=== PATIENT | female | born 1930 | race Caucasian/White ===

== ENCOUNTER 2017-04-16 09:39 | Emergency (ER) | payer MEDICARE, OTHER ==
[2017-04-16] MEDS ORDERED: Albuterol/Ipratropium 3.0-0.5 MG/3 ML Neb Soln NEB ONE (09:59)
--- NOTE | 2017-04-16 10:24 | EDM.PDOC ---
ED HPI GENERAL MEDICAL PROBLEM - General Chief Complaint: Respiratory Problem Stated Complaint: BREATHING PROBLEMS Time Seen by Provider: 04/16/17 09:45 Source of Information: Reports: Patient, Family History Limitations: Reports: No Limitations - History of Present Illness INITIAL COMMENTS - FREE TEXT/NARRATIVE: Patient states that she woke up some time in the middle of the night and was short of breath. The SOB has continued without change through this AM which caused her to seek medical attention today. Onset: Unknown/Unsure Onset Date: 04/16/17 Onset Time: 02:00 ("Sometime in the middle of the night.") Duration: Hour(s): (8), Other (No change) Location: Reports: Chest Quality: Reports: Other (Pt denies pain) Severity: Mild Improves with: Reports: Rest Worsens with: Reports: Movement Context: Reports: Activity Associated Symptoms: Reports: Shortness of Breath, Other (dizziness) - Related Data Allergies Allergy/AdvReac Type Severity Reaction Status Date / Time losartan potassium Allergy Nausea Verified 04/16/17 09:59 [From Alex] Home Meds: Home Meds Budesonide/Formoterol [Symbicort 160-4.5 MCG] 2 puff INH BID 04/23/14 [History] Simvastatin [Simvastatin] 10 mg PO DAILY 04/23/14 [History] Albuterol Sulfate [Albuterol Sulfate HFA] 2 puff INH Q6HR PRN 05/13/15 [History] Aspirin 81 mg PO DAILY 05/13/15 [History] Cetirizine [ZyrTEC] 10 mg PO DAILY 05/13/15 [History] Fluticasone Propionate [Flonase] 50 mcg NASBOTH DAILY PRN 05/13/15 [History] Furosemide 20 mg PO DAILY 05/13/15 [History] Memantine HCl [Namenda Xr] 14 mg PO DAILY 05/13/15 [History] Multivitamin [Multivitamins] 1 each PO DAILY 05/13/15 [History] amLODIPine [Norvasc] 5 mg PO DAILY 05/13/15 [History] Ibuprofen 200 - 600 mg PO Q4H PRN 10/10/15 [History] Past Medical History HEENT History: Reports: Cataract, Retinal Detachment Other HEENT History: pseudophakia. myopia presbyopia. dermatochalasis. dry eye. chronic rhinitis astigmatism Cardiovascular History: Reports: High Cholesterol, Hypertension Respiratory History: Reports: Asthma, COPD Gastrointestinal History: Reports: Colon Polyp, Other (See Below) Other Gastrointestinal History: acid reflux Musculoskeletal History: Reports: Gout, Other (See Below) Other Musculoskeletal History: osteopenia Neurological History: Reports: Other (See Below) Other Neuro History: memory issues Psychiatric History: Reports: Other (See Below) Other Psychiatric History: mild cognitive disorder - Past Surgical History HEENT Surgical History: Reports: Detached Retina Social & Family History - Tobacco Use Smoking Status *Q: Never Smoker - Alcohol Use Days Per Week of Alcohol Use: 0 - Recreational Drug Use Recreational Drug Use: No Drug Use in Last 12 Months: No ED ROS GENERAL - Review of Systems Review Of Systems: See Below Constitutional: Reports: Fatigue HEENT: Reports: No Symptoms Respiratory: Reports: Shortness of Breath Cardiovascular: Reports: No Symptoms Endocrine: Reports: No Symptoms GI/Abdominal: Reports: No Symptoms : Reports: No Symptoms Musculoskeletal: Reports: Neck Pain, Back Pain Skin: Reports: No Symptoms Neurological: Reports: Dizziness Psychiatric: Reports: No Symptoms Hematologic/Lymphatic: Reports: No Symptoms Immunologic: Reports: No Symptoms ED EXAM, GENERAL - Physical Exam Exam: See Below Exam Limited By: No Limitations General Appearance: Alert, No Apparent Distress Eye Exam: Bilateral Eye: Normal Inspection, PERRL Ears: Normal External Exam, Normal Canal, Hearing Grossly Normal, Normal TMs Ear Exam: Bilateral Ear: Auricle Normal, Canal Normal, TM normal Nose: Normal Inspection, Normal Mucosa, No Blood Throat/Mouth: Normal Inspection, Normal Lips, Normal Teeth, Normal Gums, Normal Oropharynx, Normal Voice, No Airway Compromise Head: Atraumatic, Normocephalic Neck: Normal Inspection, Supple, Non-Tender, Full Range of Motion Respiratory/Chest: No Respiratory Distress, Lungs Clear, Normal Breath Sounds, No Accessory Muscle Use, Chest Non-Tender Cardiovascular: Normal Peripheral Pulses, No Edema, Bradycardia, Systolic Murmur Peripheral Pulses: 2+: Carotid (L), Carotid (R), Radial (L), Radial (R), Dorsalis Pedis (L), Dorsalis Pedis (R) GI/Abdominal: Normal Bowel Sounds, Soft, Non-Tender, No Organomegaly, No Distention (Female) Exam: Deferred Rectal (Female) Exam: Deferred Back Exam: Decreased Range of Motion Extremities: Normal Inspection, No Pedal Edema, Normal Capillary Refill Neurological: Alert, Oriented, CN II-XII Intact Psychiatric: Normal Affect, Normal Mood Skin Exam: Warm, Dry, Intact, Normal Color, No Rash Lymphatic: No Adenopathy ED RESPIRATORY PROCEDURES - Additional/Other Procedure(s) Other (Free Text) Procedure(s): Chest xray does not show any sign of acute pulmonary infection or process. No change from the study in March 2014. EKG INTERPRETATION EKG Date: 04/16/17 Time: 10:00 Rhythm: other (sinus bradycardia with first degree heart block) Rate (beats/min): 52 [place]: normal P-wave: present QRS: normal ST-T: normal QT: normal Comparison: NA - no prior EKG Course - Vital Signs Text/Narrative:: Patient was placed on 2 liters of oxygen and given a duoneb in the ED. She states that she is less short of breath now. Her heart rate has remained in the low 50's dipping down into the 40's at times. She is otherwise stable and has had no new symptoms. Last Recorded V/S: Last Vital Signs Temp 35.1 C L 04/16/17 10:36 Pulse 47 L 04/16/17 10:36 Resp 14 04/16/17 10:36 BP 150/62 H 04/16/17 10:36 Pulse Ox 98 04/16/17 10:36 - Orders/Labs/Meds Orders: Active Orders 24 hr Category Date Time Status EKG 12 Lead [EKG Documentation Completion] [RC] STAT Care 04/16/17 09:40 Active RT Aerosol Therapy [RC] ASDIRECTED Care 04/16/17 09:59 Active Chest 2V [CR] Stat Exams 04/16/17 10:01 Taken Labs: Laboratory Tests 04/16/17 04/16/17 Range/Units 10:13 10:13 WBC 4.6 (4.0-10.0) x10^3/uL RBC 3.97 L (4.00-5.50) x10^6/uL Hgb 12.8 (12.0-16.0) g/dL Hct 38.1 (33.0-47.0) % MCV 96.0 H (78.0-93.0) fL MCH 32.2 H (26.0-32.0) pg MCHC 33.6 (32.0-36.0) g/dL RDW Coeff of Amelia 12.7 (10.0-15.0) % Plt Count 183 (130-400) x10^3/uL Neut % (Auto) 57.1 (50.0-80.0) % Lymph % (Auto) 21.8 L (25.0-50.0) % [place] % (Auto) 9.1 (2.0-11.0) % Eos % (Auto) 11.6 H (0.0-4.0) % Baso % (Auto) 0.4 (0.2-1.2) % Sodium 143 (136-145) mmol/L Potassium 3.5 (3.5-5.1) mmol/L Chloride 104 (98-107) mmol/L Carbon Dioxide 32 (21-32) mmol/L BUN 23 H (7-18) mg/dL Creatinine 1.0 (0.55-1.02) mg/dL Est Cr Clr Drug Dosing 35.52 mL/min Estimated GFR (MDRD) 53 Glucose 101 (74-106) mg/dL Calcium 8.8 (8.5-10.1) mg/dL Creatine Kinase 70 (26-192) U/L Creatine Kinase Index 1.3 (0.0-4.0) % CK-MB (CK-2) 0.9 (0.0-3.6) ng/mL Troponin I < 0.017 (<=0.056) ng/mL Meds: Medications Discontinued Medications Generic Name Dose Route Start Last Admin Trade Name Mattq PRN Reason Stop Dose Admin Albuterol/Ipratropium 3 ml 04/16/17 09:59 04/16/17 10:10 Duoneb 3.0-0.5 Mg/3 Ml NEB 04/16/17 10:00 3 ml ONETIME ONE Administration Departure - Departure Time of Disposition: 11:30 Disposition: Home, Self-Care 01 Condition: good (Patient is much improved and states she is no longer short of breath) Clinical Impression: Symptomatic sinus bradycardia, Hypoxemia - Discharge Information Forms: ED Department Discharge - Problem List Review Problem List Initiated/Reviewed/Updated: Yes - My Orders Last 24 Hours: My Active Orders 04/16/17 09:40 EKG 12 Lead [EKG Documentation Completion] [RC] STAT 04/16/17 09:59 RT Aerosol Therapy [RC] ASDIRECTED 04/16/17 10:01 Chest 2V [CR] Stat - Assessment/Plan Last 24 Hours: My Active Orders 04/16/17 09:40 EKG 12 Lead [EKG Documentation Completion] [RC] STAT 04/16/17 09:59 RT Aerosol Therapy [RC] ASDIRECTED 04/16/17 10:01 Chest 2V [CR] Stat Assessment:: Symptomatic Bradycardia Plan: Patient to follow up with primary care provider on Tuesday for referral to cardiology at [facility] in [place]. This provider attempted to call [place] to set this up but was told by the [facility] nurse that their building illuminating engineer will not do this over the phone on a weekend.
[2017-04-16 10:37] VITALS: BP 150/62
[2017-04-16 10:50] LABS: CHLORIDE,CL 104 mmol/L (98-107); SODIUM,NA 143 mmol/L (136-145)
== END 2017-04-16 11:30 | disposition home or self-care (01) ==
LOC: VM.ED 09:39
DX: R00.1 Bradycardia, unspecified (principal); R09.02 Hypoxemia; E78.00 Pure hypercholesterolemia, unspecified; I10 Essential (primary) hypertension; J45.909 Unspecified asthma, uncomplicated; J44.9 Chronic obstructive pulmonary disease, unspecified; K21.9 Gastro-esophageal reflux disease without esophagitis; Z88.8 Allergy status to other drugs, medicaments and biological substances; Z79.82 Long term (current) use of aspirin; Z79.899 Other long term (current) drug therapy
CPT/HCPCS: 36415; 71020; 80048; 82550; 82553; 84484; 85025; 93005; 94640; 99284-GF; 99285

== ENCOUNTER 2017-04-20 14:58 | Emergency (ER) | payer MEDICARE, OTHER ==
--- NOTE | 2017-04-20 15:43 | EDM.PDOC ---
ED HPI GENERAL MEDICAL PROBLEM - General Chief Complaint: Cardiovascular Problem Stated Complaint: dizziness Time Seen by Provider: 04/20/17 15:14 Source of Information: Reports: Patient, Family History Limitations: Reports: No Limitations - History of Present Illness INITIAL COMMENTS - FREE TEXT/NARRATIVE: Patient has been seen in the clinic and ER on 4 separate occasions with complaints ranging from shortness of breath to dizziness and near syncope. She has been found to have symptomatic bradycardia in our emergency department on Tuesday the 16 of April. She was seen by primary and a 24 hour holter was performed. This was returned just today. She is presenting again today with dizziness, weakness and some shortness of breath. Family is requesting her to be admitted for at least observation due to these repeated symptoms. She has no nausea, vomiting, diarrhea, no recent ill contact. Onset: Other Duration: Intermittent Severity: Moderate Associated Symptoms: Reports: Shortness of Breath - Related Data Allergies Allergy/AdvReac Type Severity Reaction Status Date / Time losartan potassium Allergy Nausea Verified 04/20/17 15:44 [From Alex] Home Meds: Home Meds Budesonide/Formoterol [Symbicort 160-4.5 MCG] 2 puff INH BID 04/23/14 [History] Simvastatin [Simvastatin] 10 mg PO DAILY 04/23/14 [History] Albuterol Sulfate [Albuterol Sulfate HFA] 2 puff INH Q6HR PRN 05/13/15 [History] Aspirin 81 mg PO DAILY 05/13/15 [History] Cetirizine [ZyrTEC] 10 mg PO DAILY PRN 05/13/15 [History] Fluticasone Propionate [Flonase] 50 mcg NASBOTH DAILY PRN 05/13/15 [History] Furosemide 20 mg PO DAILY 05/13/15 [History] Memantine HCl [Namenda Xr] 14 mg PO BID 05/13/15 [History] Multivitamin [Multivitamins] 1 each PO DAILY 05/13/15 [History] amLODIPine [Norvasc] 5 mg PO DAILY 05/13/15 [History] Ibuprofen 200 - 600 mg PO Q4H PRN 10/10/15 [History] Mirtazapine [Mirtazapine] 7.5 mg BEDTIME 04/20/17 [History] Past Medical History HEENT History: Reports: Cataract, Retinal Detachment Other HEENT History: pseudophakia. myopia presbyopia. dermatochalasis. dry eye. chronic rhinitis astigmatism Cardiovascular History: Reports: High Cholesterol, Hypertension Respiratory History: Reports: Asthma, COPD Gastrointestinal History: Reports: Colon Polyp, Other (See Below) Other Gastrointestinal History: acid reflux Musculoskeletal History: Reports: Gout, Other (See Below) Other Musculoskeletal History: osteopenia Neurological History: Reports: Other (See Below) Other Neuro History: memory issues Psychiatric History: Reports: Other (See Below) Other Psychiatric History: mild cognitive disorder - Past Surgical History HEENT Surgical History: Reports: Detached Retina Social & Family History - Tobacco Use Smoking Status *Q: Never Smoker Second Hand Smoke Exposure: No - Caffeine Use Caffeine Use: Reports: Coffee - Alcohol Use Days Per Week of Alcohol Use: 0 - Recreational Drug Use Recreational Drug Use: No Drug Use in Last 12 Months: No ED ROS GENERAL - Review of Systems Review Of Systems: See Below Constitutional: Reports: Weakness HEENT: Reports: No Symptoms Respiratory: Reports: Shortness of Breath Cardiovascular: Reports: Dyspnea on Exertion GI/Abdominal: Reports: No Symptoms : Reports: No Symptoms Musculoskeletal: Reports: No Symptoms Skin: Reports: No Symptoms Neurological: Reports: Dizziness Psychiatric: Reports: No Symptoms Hematologic/Lymphatic: Reports: No Symptoms Immunologic: Reports: No Symptoms ED EXAM, GENERAL - Physical Exam Exam: See Below Exam Limited By: No Limitations General Appearance: Alert, WD/WN, No Apparent Distress Eye Exam: Bilateral Eye: EOMI, PERRL Throat/Mouth: Normal Inspection, Normal Lips, Normal Oropharynx Head: Atraumatic, Normocephalic Neck: Normal Inspection, Supple, Non-Tender, Full Range of Motion Respiratory/Chest: No Respiratory Distress, Lungs Clear, Normal Breath Sounds, No Accessory Muscle Use, Chest Non-Tender Cardiovascular: Bradycardia Peripheral Pulses: 2+: Posterior Tibial (L), Posterior Tibial (R), Dorsalis Pedis (L), Dorsalis Pedis (R) GI/Abdominal: Normal Bowel Sounds, Soft, Non-Tender Back Exam: Decreased Range of Motion Extremities: Normal Range of Motion, Non-Tender, Pedal Edema (bilateral 2+ pedal edema) Neurological: Alert, Oriented, CN II-XII Intact, Normal Reflexes, No Motor/ Sensory Deficits Psychiatric: Normal Affect, Normal Mood Skin Exam: Warm, Dry, Intact Lymphatic: No Adenopathy Course - Vital Signs Last Recorded V/S: Last Vital Signs Temp 36.2 C 04/20/17 14:58 Pulse 60 04/20/17 14:58 Resp 16 04/20/17 14:58 BP 140/69 04/20/17 14:58 Pulse Ox 94 L 04/20/17 14:58 Orthostatic Blood Pressure [ 137/71 Standing] Orthostatic Blood Pressure [ 145/80 Sitting] Orthostatic Blood Pressure [ 140/70 Supine] - Orders/Labs/Meds Orders: Active Orders 24 hr Category Date Time Status EKG Documentation Completion [RC] ROUTINE Care 04/20/17 15:27 Ordered Orthostatic Vital Signs [RC] ASDIRECTED Care 04/20/17 16:52 Ordered Chest 1V Frontal [CR] Stat Exams 04/20/17 15:43 Ordered Chest PE [Ang Chest] [CT] Stat Exams 04/20/17 16:27 Ordered UA W/MICROSCOPIC [URIN] Stat Lab 04/20/17 15:27 Uncollected Sodium Chloride 0.9% [Saline Flush] Med 04/20/17 15:48 Ordered 10 ml FLUSH ASDIRECTED PRN Saline Lock Insert [OM.PC] Routine Oth 04/20/17 15:48 Ordered Medication Orders Sodium Chloride (Saline Flush) 10 ml FLUSH ASDIRECTED PRN PRN Reason: Keep Vein Open Labs: Laboratory Tests 04/20/17 04/20/17 04/20/17 Range/Units 15:44 15:44 15:44 WBC 6.0 (4.0-10.0) x10^3/uL RBC 4.02 (4.00-5.50) x10^6/uL Hgb 13.0 (12.0-16.0) g/dL Hct 38.7 (33.0-47.0) % MCV 96.3 H (78.0-93.0) fL MCH 32.3 H (26.0-32.0) pg MCHC 33.6 (32.0-36.0) g/dL RDW Coeff of Amelia 12.7 (10.0-15.0) % Plt Count 188 (130-400) x10^3/uL Neut % (Auto) 55.8 (50.0-80.0) % Lymph % (Auto) 22.5 L (25.0-50.0) % [place] % (Auto) 8.6 (2.0-11.0) % Eos % (Auto) 12.6 H (0.0-4.0) % Baso % (Auto) 0.5 (0.2-1.2) % PT 11.0 (10.0-12.8) SEC INR 1.0 L (2.0-3.5) D-Dimer, Quantitative 1.24 H (<=0.58) mg/LFEU Sodium 143 (136-145) mmol/L Potassium 3.6 (3.5-5.1) mmol/L Chloride 105 (98-107) mmol/L Carbon Dioxide 30 (21-32) mmol/L BUN 27 H (7-18) mg/dL Creatinine 1.2 H (0.55-1.02) mg/dL Est Cr Clr Drug Dosing TNP Estimated GFR (MDRD) 43 Glucose 108 H (74-106) mg/dL Calcium 8.8 (8.5-10.1) mg/dL Corrected Calcium 8.96 (8.5-10.1) mg/dL Total Bilirubin 0.3 (0.2-1.0) mg/dL AST 15 (15-37) U/L ALT 19 (14-59) U/L Alkaline Phosphatase 70 (46-116) U/L Creatine Kinase 61 (26-192) U/L Creatine Kinase Index 1.1 (0.0-4.0) % CK-MB (CK-2) 0.7 (0.0-3.6) ng/mL Troponin I < 0.017 (<=0.056) ng/mL B-Natriuretic Peptide 285 (<=450) pg/mL Total Protein 6.5 (6.4-8.2) g/dL Albumin 3.8 (3.4-5.0) g/dL Globulin 2.7 Albumin/Globulin Ratio 1.41 TSH, Ultra Sensitive 1.559 (0.358-3.74) uIU/mL Meds: Medications Generic Name Dose Route Start Last Admin Trade Name Freq PRN Reason Stop Dose Admin Sodium Chloride 10 ml 04/20/17 15:48 Saline Flush FLUSH ASDIRECTED PRN Keep Vein Open Discontinued Medications Generic Name Dose Route Start Last Admin Trade Name Freq PRN Reason Stop Dose Admin Sodium Chloride 1,000 mls @ 999 mls/hr 04/20/17 15:48 04/20/17 16:00 Normal Saline IV 04/20/17 16:48 999 mls/hr .BOLUS ONE Administration Iopamidol 100 ml 04/20/17 17:01 Isovue-300 (61%) IVPUSH 04/20/17 17:02 ONETIME ONE - Radiology Interpretation Free Text/Narrative:: negative chest x-ray CTA to rule out PE - Re-Assessments/Exams Free Text/Narrative Re-Assessment/Exam: 04/20/17 17:05 Reviewed pt[address] chart with Dr. Cali, hospitalist at [facility] for transfer and further investigation of her symptomatic bradycardia. Departure - Departure Time of Disposition: 17:59 Disposition: DC/Tfer to Other Reason for Transfer *Q: Other (cardiology evaluation) Condition: good Clinical Impression: Symptomatic sinus bradycardia Forms: Interfacility Transfer EMTALA - My Orders Last 24 Hours: My Active Orders 04/20/17 15:27 EKG Documentation Completion [RC] ROUTINE UA W/MICROSCOPIC [URIN] Stat 04/20/17 15:43 Chest 1V Frontal [CR] Stat 04/20/17 15:48 Sodium Chloride 0.9% [Saline Flush] 10 ml FLUSH ASDIRECTED PRN Saline Lock Insert [OM.PC] Routine 04/20/17 16:27 Chest PE [Ang Chest] [CT] Stat 04/20/17 16:52 Orthostatic Vital Signs [RC] ASDIRECTED - Assessment/Plan Last 24 Hours: My Active Orders 04/20/17 15:27 EKG Documentation Completion [RC] ROUTINE UA W/MICROSCOPIC [URIN] Stat 04/20/17 15:43 Chest 1V Frontal [CR] Stat 04/20/17 15:48 Sodium Chloride 0.9% [Saline Flush] 10 ml FLUSH ASDIRECTED PRN Saline Lock Insert [OM.PC] Routine 04/20/17 16:27 Chest PE [Ang Chest] [CT] Stat 04/20/17 16:52 Orthostatic Vital Signs [RC] ASDIRECTED
[2017-04-20] MEDS ORDERED: Sodium Chloride 0.9% 1,000 ML IV ONE (15:48)
[2017-04-20] MEDS ORDERED: Sodium Chloride 0.9% 10 ML Syringe FLUSH PRN (15:48)
[2017-04-20 15:54] VITALS: BP 140/69
[2017-04-20 16:31] LABS: CHLORIDE,CL 105 mmol/L (98-107); SODIUM,NA 143 mmol/L (136-145)
[2017-04-20] MEDS ORDERED: Iopamidol 612 MG/ML 100 ML Bottle IVPUSH ONE (17:01)
== END 2017-04-20 17:57 | disposition other institution (70) ==
LOC: VM.ED 14:58
DX: R00.1 Bradycardia, unspecified (principal); J44.9 Chronic obstructive pulmonary disease, unspecified; J45.909 Unspecified asthma, uncomplicated; K21.9 Gastro-esophageal reflux disease without esophagitis; Z79.899 Other long term (current) drug therapy; Z79.82 Long term (current) use of aspirin
CPT/HCPCS: 36415; 71010; 71275; 80053; 82550; 82553; 83880; 84443; 84484; 85025; 85379; 85610; 93005; 96360; 96361; 99284; 99285; J7030

== ENCOUNTER 2017-06-23 22:39 | Emergency (ER) | payer MEDICARE, OTHER ==
[2017-06-23] MEDS ORDERED: Albuterol/Ipratropium 3.0-0.5 MG/3 ML Neb Soln NEB ONE (23:01)
[2017-06-23] MEDS ORDERED: methylPREDNISolone Sodium Succinate 125 MG/2 ML SDV IM ONE (23:06)
--- NOTE | 2017-06-23 23:06 | EDM.PDOC ---
ED HPI GENERAL MEDICAL PROBLEM - General Chief Complaint: Respiratory Problem Stated Complaint: Short of Breath Time Seen by Provider: 06/23/17 22:40 Source of Information: Reports: Patient History Limitations: Reports: No Limitations - History of Present Illness INITIAL COMMENTS - FREE TEXT/NARRATIVE: Patient was out weeding in her garden today and did complain of shortness of breath. She states she tried to take her symbicort before coming in and that was unsuccessful. She does state that her SOB is better and she would like just a minimal work up for a likely copd exacerbation. No fever, chills, denies chest pain, currently denies SOB, no abdominal pain. Denies blood in urine or stool. No other symptoms. 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(s) - Related Data Allergies Allergy/AdvReac Type Severity Reaction Status Date / Time losartan potassium Allergy Nausea Verified 06/23/17 22:59 [From Alex] Home Meds: Home Meds Budesonide/Formoterol [Symbicort 160-4.5 MCG] 2 puff INH BID 04/23/14 [History] Simvastatin [Simvastatin] 10 mg PO DAILY 04/23/14 [History] Albuterol Sulfate [Albuterol Sulfate HFA] 2 puff INH Q6HR PRN 05/13/15 [History] Aspirin 81 mg PO DAILY 05/13/15 [History] Cetirizine [ZyrTEC] 10 mg PO DAILY PRN 05/13/15 [History] Fluticasone Propionate [Flonase] 50 mcg NASBOTH DAILY PRN 05/13/15 [History] Furosemide 20 mg PO DAILY 05/13/15 [History] Memantine HCl [Namenda Xr] 14 mg PO BID 05/13/15 [History] Multivitamin [Multivitamins] 1 each PO DAILY 05/13/15 [History] amLODIPine [Norvasc] 5 mg PO DAILY 05/13/15 [History] Ibuprofen 200 - 600 mg PO Q4H PRN 10/10/15 [History] Mirtazapine [Mirtazapine] 7.5 mg BEDTIME 04/20/17 [History] Past Medical History HEENT History: Reports: Cataract, Retinal Detachment Other HEENT History: pseudophakia. myopia presbyopia. dermatochalasis. dry eye. chronic rhinitis astigmatism Cardiovascular History: Reports: High Cholesterol, Hypertension Respiratory History: Reports: Asthma, COPD Gastrointestinal History: Reports: Colon Polyp, Other (See Below) Other Gastrointestinal History: acid reflux Musculoskeletal History: Reports: Gout, Other (See Below) Other Musculoskeletal History: osteopenia Neurological History: Reports: Other (See Below) Other Neuro History: memory issues Psychiatric History: Reports: Other (See Below) Other Psychiatric History: mild cognitive disorder - Past Surgical History HEENT Surgical History: Reports: Detached Retina Social & Family History - Tobacco Use Smoking Status *Q: Never Smoker Second Hand Smoke Exposure: No - Caffeine Use Caffeine Use: Reports: Coffee - Alcohol Use Days Per Week of Alcohol Use: 0 - Recreational Drug Use Recreational Drug Use: No Drug Use in Last 12 Months: No ED ROS GENERAL - Review of Systems Review Of Systems: See Below Constitutional: Reports: No Symptoms HEENT: Reports: No Symptoms Respiratory: Reports: Shortness of Breath (resolved prior to arrival) Cardiovascular: Reports: No Symptoms Endocrine: Reports: No Symptoms GI/Abdominal: Reports: No Symptoms : Reports: No Symptoms Musculoskeletal: Reports: No Symptoms Skin: Reports: No Symptoms Neurological: Reports: No Symptoms Psychiatric: Reports: No Symptoms Hematologic/Lymphatic: Reports: No Symptoms Immunologic: Reports: No Symptoms ED EXAM, GENERAL - Physical Exam Exam: See Below Exam Limited By: No Limitations General Appearance: Alert, WD/WN, No Apparent Distress Eye Exam: Bilateral Eye: EOMI, PERRL Ears: Normal TMs Throat/Mouth: Normal Inspection, Normal Oropharynx Head: Atraumatic, Normocephalic Neck: Normal Inspection Respiratory/Chest: No Respiratory Distress, Lungs Clear, Normal Breath Sounds, No Accessory Muscle Use, Chest Non-Tender Cardiovascular: Normal Peripheral Pulses, Regular Rate, Rhythm, No Edema, No Gallop, Systolic Murmur GI/Abdominal: Normal Bowel Sounds, Soft, Non-Tender, No Organomegaly Extremities: Normal Inspection, Normal Range of Motion, Non-Tender, Normal Capillary Refill Neurological: Alert, Oriented, CN II-XII Intact, Normal Cognition, Normal Gait, Normal Reflexes, No Motor/Sensory Deficits Psychiatric: Normal Affect, Normal Mood Skin Exam: Warm, Dry, Intact, Normal Color Lymphatic: No Adenopathy Course - Orders/Labs/Meds Orders: Active Orders 24 hr Category Date Time Status RT Aerosol Therapy [RC] ASDIRECTED Care 06/23/17 23:01 Ordered Meds: Medications Discontinued Medications Generic Name Dose Route Start Last Admin Trade Name Salvatore PRN Reason Stop Dose Admin Albuterol/Ipratropium 3 ml 06/23/17 23:01 06/23/17 23:05 Duoneb 3.0-0.5 Mg/3 Ml NEB 06/23/17 23:02 3 ml ONETIME ONE Administration Methylprednisolone Sodium Succinate 125 mg 06/23/17 23:06 Solu-Medrol IM 06/23/17 23:07 ONETIME ONE - Re-Assessments/Exams Free Text/Narrative Re-Assessment/Exam: 06/23/17 23:14 duoneb and IM solumedrol ordered Departure - Departure Time of Disposition: 23:29 Disposition: Home, Self-Care 01 Condition: Good Clinical Impression: COPD (chronic obstructive pulmonary disease) - Discharge Information Instructions: Chronic Obstructive Pulmonary Disease Exacerbation, [id number] Referrals: Candi Beauchamp DO [Primary Care Provider] - Forms: ED Department Discharge Additional Instructions: Follow up with your primary provider for any additional medications or as needed inhalers for your COPD Try to stay out of the hot humid weather for long periods as this can irritate your lungs and cause this to recur If you have any questions or concerns from now until your next appointment - Problem List & Annotations (1) COPD (chronic obstructive pulmonary disease) SNOMED Code(s): 63465242 Code(s): J44.9 - CHRONIC OBSTRUCTIVE PULMONARY DISEASE, UNSPECIFIED Status : Acute Priority: Low Current Visit: Yes Qualifiers: COPD type: unspecified COPD Qualified Code(s): J44.9 - Chronic obstructive pulmonary disease, unspecified - Problem List Review Problem List Initiated/Reviewed/Updated: Yes - My Orders Last 24 Hours: My Active Orders 06/23/17 23:01 RT Aerosol Therapy [RC] ASDIRECTED - Assessment/Plan Last 24 Hours: My Active Orders 06/23/17 23:01 RT Aerosol Therapy [RC] ASDIRECTED Assessment:: COPD exacerbation Plan: Follow up with your primary provider for any additional medications or as needed inhalers for your COPD Try to stay out of the hot humid weather for long periods as this can irritate your lungs and cause this to recur If you have any questions or concerns from now until your next appointment
[2017-06-24 10:46] VITALS: BP 132/72
== END 2017-06-23 23:51 | disposition home or self-care (01) ==
LOC: SUPCPDRO 22:39 → VM.ED 22:39
DX: J44.9 Chronic obstructive pulmonary disease, unspecified (principal); E78.00 Pure hypercholesterolemia, unspecified; I10 Essential (primary) hypertension; M10.9 Gout, unspecified; J45.909 Unspecified asthma, uncomplicated; Z88.8 Allergy status to other drugs, medicaments and biological substances; Z79.82 Long term (current) use of aspirin
CPT/HCPCS: 94640; 99284; J2930; 99283-GF

== ENCOUNTER 2017-12-23 20:48 | Emergency (ER) | payer MEDICARE, OTHER ==
[2017-12-23] MEDS ORDERED: Sodium Chloride 0.9% 10 ML Syringe FLUSH PRN (21:47)
[2017-12-23 22:44] LABS: CHLORIDE,CL 104 mmol/L (98-107); SODIUM,NA 141 mmol/L (136-145)
--- NOTE | 2017-12-23 22:53 | EDM.PDOC ---
ED HPI GENERAL MEDICAL PROBLEM - General Chief Complaint: Neuro Symptoms/Deficits Stated Complaint: FALLING FAINT/CONFUSED Time Seen by Provider: 12/23/17 21:30 Source of Information: Reports: Patient History Limitations: Reports: No Limitations - History of Present Illness INITIAL COMMENTS - FREE TEXT/NARRATIVE: Patient is brought in tonight via her daughter with reports of near syncope. Patient states she had some episodes this evening where she became dizzy and seemed like her brain was "empty" and unable to think of anything. She denies any one sided weakness, speech difficulties, and states she feels fine and normal at this time. Has had some intermittent visits with similar type symptoms. No other complaints. Denies dizziness currently. Onset: Today, Sudden Duration: Improving Worsens with: Reports: Movement - Related Data Allergies Allergy/AdvReac Type Severity Reaction Status Date / Time losartan potassium Allergy Nausea Verified 12/23/17 22:49 [From Alex] Home Meds: Home Meds Budesonide/Formoterol [Symbicort 160-4.5 MCG] 2 puff INH BID 04/23/14 [History] Simvastatin [Simvastatin] 10 mg PO DAILY 04/23/14 [History] Albuterol Sulfate [Albuterol Sulfate HFA] 2 puff INH Q6HR PRN 05/13/15 [History] Aspirin 81 mg PO DAILY 05/13/15 [History] Cetirizine [ZyrTEC] 10 mg PO DAILY PRN 05/13/15 [History] Fluticasone Propionate [Flonase] 50 mcg NASBOTH DAILY PRN 05/13/15 [History] Furosemide 20 mg PO DAILY 05/13/15 [History] Memantine HCl [Namenda Xr] 14 mg PO BID 05/13/15 [History] Multivitamin [Multivitamins] 1 each PO DAILY 05/13/15 [History] amLODIPine [Norvasc] 5 mg PO DAILY 05/13/15 [History] Ibuprofen 200 - 600 mg PO Q4H PRN 10/10/15 [History] Mirtazapine [Mirtazapine] 7.5 mg BEDTIME 04/20/17 [History] Past Medical History HEENT History: Reports: Cataract, Retinal Detachment Other HEENT History: pseudophakia. myopia presbyopia. dermatochalasis. dry eye. chronic rhinitis astigmatism Cardiovascular History: Reports: High Cholesterol, Hypertension Respiratory History: Reports: Asthma, COPD Gastrointestinal History: Reports: Colon Polyp, Other (See Below) Other Gastrointestinal History: acid reflux Musculoskeletal History: Reports: Gout, Other (See Below) Other Musculoskeletal History: osteopenia Neurological History: Reports: Other (See Below) Other Neuro History: memory issues Psychiatric History: Reports: Other (See Below) Other Psychiatric History: mild cognitive disorder - Past Surgical History HEENT Surgical History: Reports: Detached Retina Social & Family History - Tobacco Use Smoking Status *Q: Never Smoker Second Hand Smoke Exposure: No - Caffeine Use Caffeine Use: Reports: Coffee - Alcohol Use Days Per Week of Alcohol Use: 0 - Recreational Drug Use Recreational Drug Use: No Drug Use in Last 12 Months: No ED ROS GENERAL - Review of Systems Review Of Systems: See Below Constitutional: Reports: No Symptoms HEENT: Reports: No Symptoms Respiratory: Reports: No Symptoms Cardiovascular: Reports: No Symptoms Endocrine: Reports: No Symptoms GI/Abdominal: Reports: No Symptoms : Reports: No Symptoms Musculoskeletal: Reports: No Symptoms Skin: Reports: No Symptoms Neurological: Reports: Dizziness Psychiatric: Reports: No Symptoms Hematologic/Lymphatic: Reports: No Symptoms Immunologic: Reports: No Symptoms - Physical Exam Exam: See Below Exam Limited By: No Limitations General Appearance: Alert, WD/WN, No Apparent Distress Eye Exam: Bilateral Eye: EOMI, PERRL Ears: Normal TMs Nose: Normal Inspection, Normal Mucosa, No Blood Throat/Mouth: Normal Inspection, Normal Lips, Normal Teeth, Normal Gums, Normal Oropharynx, Normal Voice, No Airway Compromise Head Exam: Atraumatic, Normocephalic Neck: Normal Inspection, Supple, Non-Tender, Full Range of Motion Respiratory/Chest: No Respiratory Distress, Lungs Clear, Normal Breath Sounds, No Accessory Muscle Use, Chest Non-Tender Cardiovascular: Normal Peripheral Pulses, Regular Rate, Rhythm, No Edema, No Gallop, No JVD, No Murmur, No Rub GI/Abdominal: Normal Bowel Sounds, Soft, Non-Tender, No Organomegaly, No Distention, No Abnormal Bruit, No Mass Neuro Exam (Abbreviated): Alert, Oriented, CN II-XII Intact, Normal Cognition, Normal Gait, Normal Reflexes, No Motor/Sensory Deficits Extremities: Normal Inspection, Normal Range of Motion, Non-Tender, No Pedal Edema, Normal Capillary Refill Psychiatric: Normal Affect, Normal Mood Skin Exam: Warm, Dry, Intact, Normal Color, No Rash EKG INTERPRETATION EKG Date: 12/23/17 Time: 22:18 Rhythm: Other (sinus bradycardia) Rate (Beats/Min): 48 [place]: Normal P-Wave: Present QRS: Normal ST-T: Normal QT: Normal EKG Interpretation Comments: Sinus bradycardia septal myocardial infarction, probably old abnormal ekg Course - Orders/Labs/Meds Orders: Active Orders 24 hr Category Date Time Status EKG Documentation Completion [RC] ROUTINE Care 12/23/17 21:47 Ordered Chest 1V Frontal [CR] Stat Exams 12/23/17 21:47 Ordered CBC WITH AUTO DIFF [HEME] Stat Lab 12/23/17 21:47 Ordered COMPREHENSIVE METABOLIC PN,CMP [CHEM] Stat Lab 12/23/17 21:47 Ordered INR,PT,PROTHROMBIN TIME [COAG] Stat Lab 12/23/17 21:47 Ordered PRO B-TYPE NATRIUR PEPT,BNPPRO [CHEM] Stat Lab 12/23/17 21:47 Ordered TROPONIN I [CHEM] Stat Lab 12/23/17 21:47 Ordered Sodium Chloride 0.9% [Saline Flush] Med 12/23/17 21:47 Ordered 10 ml FLUSH ASDIRECTED PRN Saline Lock Insert [OM.PC] Routine Oth 12/23/17 21:47 Ordered Medication Orders Sodium Chloride (Saline Flush) 10 ml FLUSH ASDIRECTED PRN PRN Reason: Keep Vein Open Meds: Medications Generic Name Dose Route Start Last Admin Trade Name Freq PRN Reason Stop Dose Admin Sodium Chloride 10 ml 12/23/17 21:47 Saline Flush FLUSH ASDIRECTED PRN Keep Vein Open - Re-Assessments/Exams Free Text/Narrative Re-Assessment/Exam: 12/23/17 23:02 Review of labs, x-ray and ECG. All within normal limits with no acute cause for her near syncope. No head CT ordered due to normal neuro exam. Departure - Departure Time of Disposition: 22:58 Disposition: Home, Self-Care 01 Condition: Good Clinical Impression: Syncope, near - Discharge Information Instructions: Syncope, [id number], Bradycardia Referrals: Candi Beauchamp DO [Primary Care Provider] - Forms: ED Department Discharge Additional Instructions: You are slightly dehydrated, make sure to drink water. Coffee will act as a diuretic and dehydrate you. Follow up with your primary doctor for any additional symptoms. Dr. Beauchamp can request records as she needs from this facility. You have a very minimally elevated heart failure enzyme which is why I did not give you IV antibiotics. Please call us with any questions or concerns. - Problem List & Annotations (1) Syncope, near SNOMED Code(s): 125572878 Code(s): R55 - SYNCOPE AND COLLAPSE Status: Acute Priority: Medium Current Visit: Yes - Problem List Review Problem List Initiated/Reviewed/Updated: Yes - My Orders Last 24 Hours: My Active Orders 12/23/17 21:47 EKG Documentation Completion [RC] ROUTINE Chest 1V Frontal [CR] Stat CBC WITH AUTO DIFF [HEME] Stat COMPREHENSIVE METABOLIC PN,CMP [CHEM] Stat INR,PT,PROTHROMBIN TIME [COAG] Stat PRO B-TYPE NATRIUR PEPT,BNPPRO [CHEM] Stat TROPONIN I [CHEM] Stat Sodium Chloride 0.9% [Saline Flush] 10 ml FLUSH ASDIRECTED PRN Saline Lock Insert [OM.PC] Routine - Assessment/Plan Last 24 Hours: My Active Orders 12/23/17 21:47 EKG Documentation Completion [RC] ROUTINE Chest 1V Frontal [CR] Stat CBC WITH AUTO DIFF [HEME] Stat COMPREHENSIVE METABOLIC PN,CMP [CHEM] Stat INR,PT,PROTHROMBIN TIME [COAG] Stat PRO B-TYPE NATRIUR PEPT,BNPPRO [CHEM] Stat TROPONIN I [CHEM] Stat Sodium Chloride 0.9% [Saline Flush] 10 ml FLUSH ASDIRECTED PRN Saline Lock Insert [OM.PC] Routine Assessment:: Near syncope Plan: You are slightly dehydrated, make sure to drink water. Coffee will act as a diuretic and dehydrate you. Follow up with your primary doctor for any additional symptoms. Dr. Beauchamp can request records as she needs from this facility. You have a very minimally elevated heart failure enzyme which is why I did not give you IV antibiotics. Please call us with any questions or concerns.
[2017-12-23 23:10] VITALS: BP 158/99
== END 2017-12-23 23:08 | disposition home or self-care (01) ==
LOC: VM.ED 20:48
DX: R55 Syncope and collapse (principal); I10 Essential (primary) hypertension; E78.00 Pure hypercholesterolemia, unspecified; Z79.899 Other long term (current) drug therapy; Z79.82 Long term (current) use of aspirin; Z88.8 Allergy status to other drugs, medicaments and biological substances
CPT/HCPCS: 36415; 71045; 80053; 83880; 84484; 85025; 85610; 93005; 99283-GF; 99284

== ENCOUNTER 2018-02-11 03:52 | Emergency (ER) | payer MEDICARE, OTHER ==
[2018-02-11] MEDS ORDERED: Sodium Chloride 0.9% 10 ML Syringe FLUSH PRN (04:19)
[2018-02-11] MEDS ORDERED: Sodium Chloride 0.9% 1,000 ML IV ONE (04:19)
--- NOTE | 2018-02-11 04:22 | EDM.PDOC ---
ED HPI GENERAL MEDICAL PROBLEM - General Chief Complaint: General Stated Complaint: legs weren't working Time Seen by Provider: 02/11/18 04:10 Source of Information: Reports: Patient, Family History Limitations: Reports: No Limitations - History of Present Illness INITIAL COMMENTS - FREE TEXT/NARRATIVE: Patient brought to the emergency room this morning by her daughter. She states she had a brief episode in which she was too weak to support herself and lowered herself to the ground. This has since resolved. She denies that she fell or hit her head. Denies LOC. Currently she has no complaints and seems somewhat annoyed that she is here. She denies headache, chest pain, shortness of breath, abdominal pain, blood in urine or stool, no neurological deficits. She denies smoking, drinking any alcohol, and use of illegal drugs. There is states that whoever was sitting with her before her daughter got there and said that her legs were shaking before she regained the use of them. She states that this is having to her in the past but her daughter denies that this is the case. Medical history does include hypertension, hypercholesterolemia, COPD, dementia. She does deny prior DC or CVA. Onset: Today, Sudden Duration: Improving Severity: Moderate Improves with: Reports: Other Worsens with: Reports: None Associated Symptoms: Reports: No Other Symptoms - Related Data Allergies Allergy/AdvReac Type Severity Reaction Status Date / Time losartan potassium Allergy Nausea Verified 02/11/18 04:00 [From Alex] Home Meds: Home Meds Budesonide/Formoterol [Symbicort 160-4.5 MCG] 2 puff INH BID 04/23/14 [History] Simvastatin [Simvastatin] 10 mg PO DAILY 04/23/14 [History] Albuterol Sulfate [Albuterol Sulfate HFA] 2 puff INH Q6HR PRN 05/13/15 [History] Cetirizine [ZyrTEC] 10 mg PO DAILY PRN 05/13/15 [History] Fluticasone Propionate [Flonase] 50 mcg NASBOTH DAILY PRN 05/13/15 [History] Memantine HCl [Namenda Xr] 10 mg PO BID 05/13/15 [History] amLODIPine [Norvasc] 5 mg PO DAILY 05/13/15 [History] Ibuprofen 200 - 600 mg PO Q4H PRN 10/10/15 [History] Acetaminophen 650 mg PO Q4H PRN 02/11/18 [History] Allopurinol [Zyloprim] 100 mg PO DAILY PRN 02/11/18 [History] Calcium Carbonate/Vitamin D2 [Oyster Shell Calcium-Vit D Tab] 1 each PO DAILY [History] Teriparatide [Forteo] 20 mcg SQ DAILY 02/11/18 [History] traZODone HCl [Trazodone HCl] 25 mg PO BEDTIME 02/11/18 [History] Past Medical History HEENT History: Reports: Cataract, Retinal Detachment Other HEENT History: pseudophakia. myopia presbyopia. dermatochalasis. dry eye. chronic rhinitis astigmatism Cardiovascular History: Reports: High Cholesterol, Hypertension Other Cardiovascular History: Bradycardia Respiratory History: Reports: Asthma, COPD Gastrointestinal History: Reports: Colon Polyp, Other (See Below) Other Gastrointestinal History: acid reflux Musculoskeletal History: Reports: Gout, Other (See Below) Other Musculoskeletal History: osteopenia Neurological History: Reports: Other (See Below) Other Neuro History: memory issues Psychiatric History: Reports: Other (See Below) Other Psychiatric History: mild cognitive disorder - Past Surgical History HEENT Surgical History: Reports: Detached Retina Female Surgical History: Reports: Hysterectomy Social & Family History - Tobacco Use Smoking Status *Q: Never Smoker Second Hand Smoke Exposure: No - Caffeine Use Caffeine Use: Reports: Coffee - Alcohol Use Days Per Week of Alcohol Use: 0 - Recreational Drug Use Recreational Drug Use: No Drug Use in Last 12 Months: No ED ROS GENERAL - Review of Systems Review Of Systems: See Below Constitutional: Reports: No Symptoms HEENT: Reports: No Symptoms Respiratory: Reports: No Symptoms Cardiovascular: Reports: No Symptoms Endocrine: Reports: No Symptoms GI/Abdominal: Reports: No Symptoms : Reports: No Symptoms Musculoskeletal: Reports: Other (states she lost the use of her legs which has since resolved) Skin: Reports: No Symptoms Neurological: Reports: No Symptoms Psychiatric: Reports: No Symptoms Hematologic/Lymphatic: Reports: No Symptoms Immunologic: Reports: No Symptoms ED EXAM, GENERAL - Physical Exam Exam: See Below Exam Limited By: No Limitations General Appearance: Alert, WD/WN, No Apparent Distress Eye Exam: Bilateral Eye: EOMI, Normal Inspection, PERRL Ears: Normal External Exam, Normal Canal, Hearing Grossly Normal, Normal TMs Nose: Normal Inspection, Normal Mucosa, No Blood Throat/Mouth: Normal Inspection, Normal Lips, Normal Teeth, Normal Gums, Normal Oropharynx, Normal Voice, No Airway Compromise Head: Atraumatic, Normocephalic Neck: Normal Inspection, Supple, Non-Tender, Full Range of Motion Respiratory/Chest: No Respiratory Distress, Lungs Clear, Normal Breath Sounds, No Accessory Muscle Use, Chest Non-Tender Cardiovascular: Normal Peripheral Pulses, Regular Rate, Rhythm, No Edema, No Gallop, No JVD, No Murmur, No Rub Peripheral Pulses: 2+: Posterior Tibial (L), Posterior Tibial (R), Dorsalis Pedis (L), Dorsalis Pedis (R) GI/Abdominal: Normal Bowel Sounds, Soft, Non-Tender, No Organomegaly, No Distention, No Abnormal Bruit, No Mass Back Exam: Normal Inspection, Full Range of Motion, NT Extremities: Normal Inspection, Normal Range of Motion, Non-Tender, Normal Capillary Refill, No Pedal Edema Neurological: Alert, Oriented, CN II-XII Intact, Normal Cognition, Normal Gait, Normal Reflexes, No Motor/Sensory Deficits Psychiatric: Normal Affect, Normal Mood Skin Exam: Warm, Dry, Intact, Normal Color, No Rash Lymphatic: No Adenopathy EKG INTERPRETATION EKG Date: 02/11/18 Time: 05:30 Rhythm: Other (sinus bradycardia) Rate (Beats/Min): 48 [place]: Normal P-Wave: Present QRS: Normal ST-T: Other QT: Normal Comparison: No Change EKG Interpretation Comments: 1. Sinus bradycardia with 1st degree AV block 2. Low QRS voltage in extremity leads 3. Left anterior fascicular block 4. Nonspecific t-wave abnormalities Course - Vital Signs Last Recorded V/S: Last Vital Signs Temp 36.1 C 02/11/18 03:56 Pulse 47 L 02/11/18 05:02 Resp 18 02/11/18 03:56 BP 164/77 H 02/11/18 05:02 Pulse Ox 93 L 02/11/18 05:02 - Orders/Labs/Meds Orders: Active Orders 24 hr Category Date Time Status EKG 12 Lead [EKG Documentation Completion] [RC] ROUTINE Care 02/11/18 05:17 Active Head wo Cont [CT] Stat Exams 02/11/18 04:19 Taken Sodium Chloride 0.9% [Saline Flush] Med 02/11/18 04:19 Active 10 ml FLUSH ASDIRECTED PRN Saline Lock Insert [OM.PC] Routine Oth 02/11/18 04:19 Ordered Medication Orders Sodium Chloride (Saline Flush) 10 ml FLUSH ASDIRECTED PRN PRN Reason: Keep Vein Open Labs: Laboratory Tests 02/11/18 02/11/18 02/11/18 Range/Units 04:40 04:40 04:40 WBC 5.9 (4.0-10.0) x10^3/uL RBC 3.92 L (4.00-5.50) x10^6/uL Hgb 12.7 (12.0-16.0) g/dL Hct 37.9 (33.0-47.0) % MCV 96.7 H (78.0-93.0) fL MCH 32.4 H (26.0-32.0) pg MCHC 33.5 (32.0-36.0) g/dL RDW Coeff of Amelia 13.1 (10.0-15.0) % Plt Count 195 (130-400) x10^3/uL Neut % (Auto) 67.5 (50.0-80.0) % Lymph % (Auto) 16.1 L (25.0-50.0) % [place] % (Auto) 9.5 (2.0-11.0) % Eos % (Auto) 6.4 H (0.0-4.0) % Baso % (Auto) 0.5 (0.2-1.2) % PT 11.0 (9.8-11.8) SEC INR 1.0 L (2.0-3.5) Sodium (136-145) mmol/L Potassium (3.5-5.1) mmol/L Chloride (98-107) mmol/L Carbon Dioxide (21-32) mmol/L BUN (7-18) mg/dL Creatinine (0.55-1.02) mg/dL Est Cr Clr Drug Dosing Estimated GFR (MDRD) Glucose (74-106) mg/dL Calcium (8.5-10.1) mg/dL Corrected Calcium (8.5-10.1) mg/dL Total Bilirubin (0.2-1.0) mg/dL AST (15-37) U/L ALT (14-59) U/L Alkaline Phosphatase (46-116) U/L Troponin I (<=0.056) ng/mL C-Reactive Protein (<=0.9) mg/dL NT-Pro-B Natriuret Pep 440 (<=450) pg/mL Total Protein (6.4-8.2) g/dL Albumin (3.4-5.0) g/dL Globulin Albumin/Globulin Ratio Urine Color (YELLOW) Urine Appearance (CLEAR) Urine pH (5.0-8.0) Ur Specific [place] Urine Protein (NEGATIVE) mg/dL Urine Glucose (UA) (NEGATIVE) mg/dL Urine Ketones (NEGATIVE) mg/dL Urine Occult Blood (NEGATIVE) Urine Nitrite (NEGATIVE) Urine Bilirubin (NEGATIVE) Urine Urobilinogen (0.2) EU/dL Ur Leukocyte Esterase (NEGATIVE) Urine RBC (NOT SEEN) /HPF Urine WBC (NOT SEEN) /HPF Ur Squamous Epith Cells (NEGATIVE) /HPF Urine Bacteria (NEGATIVE) /HPF Urine Mucus (NEGATIVE) /LPF 02/11/18 02/11/18 Range/Units 04:40 05:52 WBC (4.0-10.0) x10^3/uL RBC (4.00-5.50) x10^6/uL Hgb (12.0-16.0) g/dL Hct (33.0-47.0) % MCV (78.0-93.0) fL MCH (26.0-32.0) pg MCHC (32.0-36.0) g/dL RDW Coeff of Amelia (10.0-15.0) % Plt Count (130-400) x10^3/uL Neut % (Auto) (50.0-80.0) % Lymph % (Auto) (25.0-50.0) % [place] % (Auto) (2.0-11.0) % Eos % (Auto) (0.0-4.0) % Baso % (Auto) (0.2-1.2) % PT (9.8-11.8) SEC INR (2.0-3.5) Sodium 139 (136-145) mmol/L Potassium 3.6 (3.5-5.1) mmol/L Chloride 104 (98-107) mmol/L Carbon Dioxide 26 (21-32) mmol/L BUN 16 (7-18) mg/dL Creatinine 1.1 H (0.55-1.02) mg/dL Est Cr Clr Drug Dosing TNP Estimated GFR (MDRD) 47 Glucose 92 (74-106) mg/dL Calcium 9.0 (8.5-10.1) mg/dL Corrected Calcium 9.16 (8.5-10.1) mg/dL Total Bilirubin 0.5 (0.2-1.0) mg/dL AST 14 L (15-37) U/L ALT 13 L (14-59) U/L Alkaline Phosphatase 85 (46-116) U/L Troponin I < 0.017 (<=0.056) ng/mL C-Reactive Protein < 0.2 (<=0.9) mg/dL NT-Pro-B Natriuret Pep (<=450) pg/mL Total Protein 6.5 (6.4-8.2) g/dL Albumin 3.8 (3.4-5.0) g/dL Globulin 2.7 Albumin/Globulin Ratio 1.41 Urine Color Yellow (YELLOW) Urine Appearance Slightly cloudy H (CLEAR) Urine pH 6.5 (5.0-8.0) Ur Specific [place] 1.010 Urine Protein Negative (NEGATIVE) mg/dL Urine Glucose (UA) Negative (NEGATIVE) mg/dL Urine Ketones Negative (NEGATIVE) mg/dL Urine Occult Blood Negative (NEGATIVE) Urine Nitrite Positive H (NEGATIVE) Urine Bilirubin Negative (NEGATIVE) Urine Urobilinogen 0.2 (0.2) EU/dL Ur Leukocyte Esterase Negative (NEGATIVE) Urine RBC 0-5 (NOT SEEN) /HPF Urine WBC 0-5 (NOT SEEN) /HPF Ur Squamous Epith Cells Few H (NEGATIVE) /HPF Urine Bacteria Many H (NEGATIVE) /HPF Urine Mucus Rare H (NEGATIVE) /LPF Meds: Medications Generic Name Dose Route Start Last Admin Trade Name Freq PRN Reason Stop Dose Admin Sodium Chloride 10 ml 02/11/18 04:19 Saline Flush FLUSH ASDIRECTED PRN Keep Vein Open Discontinued Medications Generic Name Dose Route Start Last Admin Trade Name Freq PRN Reason Stop Dose Admin Sodium Chloride 1,000 mls @ 999 mls/hr 02/11/18 04:19 02/11/18 04:29 Normal Saline IV 03/17/18 05:19 999 mls/hr ONETIME ONE Administration - Re-Assessments/Exams Free Text/Narrative Re-Assessment/Exam: 02/11/18 06:11 CT head negative for ischemia or hemorrhage Urinalysis shows positive for nitrites Departure - Departure Time of Disposition: 06:27 Disposition: Home, Self-Care 01 Condition: Good Clinical Impression: Urinary tract infection - Discharge Information Instructions: Urinary Tract Infection, Adult, [id number] Forms: ED Department Discharge Additional Instructions: Drink plenty of water Take the macrobid as prescribed and finish the full course even if you feel better We will call you if the bacteria is resistant to macrobid and another antibiotic needs to be prescribed. If you do not hear from us then continue to take the macrobid. Follow up with your primary doctor as symptoms warrant Please call us with any questions or concerns - Problem List & Annotations (1) Urinary tract infection SNOMED Code(s): 12538940 Code(s): N39.0 - URINARY TRACT INFECTION, SITE NOT SPECIFIED Status: Acute Priority: Low Current Visit: Yes Qualifiers: Urinary tract infection type: acute cystitis Hematuria presence: without hematuria Qualified Code(s): N30.00 - Acute cystitis without hematuria - Problem List Review Problem List Initiated/Reviewed/Updated: Yes - My Orders Last 24 Hours: My Active Orders 02/11/18 04:19 Head wo Cont [CT] Stat Sodium Chloride 0.9% [Saline Flush] 10 ml FLUSH ASDIRECTED PRN Saline Lock Insert [OM.PC] Routine 02/11/18 05:17 EKG 12 Lead [EKG Documentation Completion] [RC] ROUTINE - Assessment/Plan Last 24 Hours: My Active Orders 02/11/18 04:19 Head wo Cont [CT] Stat Sodium Chloride 0.9% [Saline Flush] 10 ml FLUSH ASDIRECTED PRN Saline Lock Insert [OM.PC] Routine 02/11/18 05:17 EKG 12 Lead [EKG Documentation Completion] [RC] ROUTINE Assessment:: UTI Plan: Drink plenty of water Take the macrobid as prescribed and finish the full course even if you feel better We will call you if the bacteria is resistant to macrobid and another antibiotic needs to be prescribed. If you do not hear from us then continue to take the macrobid. Follow up with your primary doctor as symptoms warrant Please call us with any questions or concerns
[2018-02-11 05:03] VITALS: BP 164/77
[2018-02-11 05:47] LABS: CHLORIDE,CL 104 mmol/L (98-107); SODIUM,NA 139 mmol/L (136-145)
[2018-02-11] MEDS ORDERED: Nitrofurantoin Monohydrate/Macrocrystalline 100 MG Cap PO ONE (06:09)
== END 2018-02-11 06:21 | disposition home or self-care (01) ==
LOC: VM.ED 03:52
DX: N39.0 Urinary tract infection, site not specified (principal); J44.9 Chronic obstructive pulmonary disease, unspecified; I10 Essential (primary) hypertension; E78.00 Pure hypercholesterolemia, unspecified; Z79.899 Other long term (current) drug therapy; Z88.8 Allergy status to other drugs, medicaments and biological substances
CPT/HCPCS: 36415; 70450; 80053; 81001; 83880; 84484; 85025; 85610; 86140; 93005; 96360; 99285; A9270; J7030

== ENCOUNTER 2021-12-14 19:29 | Emergency (ER) | payer MEDICARE, OTHER ==
[2021-12-14 20:14] LABS: CHLORIDE,CL 103 mmol/L (98-107); SODIUM,NA 140 mmol/L (136-145)
[2021-12-14] MEDS: fentaNYL 50 MCG/ML SDV IVPUSH ONE ×2 (20:59→22:22)
[2021-12-14 21:53] VITALS: BP 174/36; PULSE 57
[2021-12-14] MEDS: Ondansetron 4 MG/2 ML SDV IVPUSH ONE (22:22)
[2021-12-14] MEDS: Sodium Chloride 0.9% 1,000 ML IV SCH (22:23)
== END 2021-12-14 22:37 | disposition short-term general hospital (02) ==
LOC: VM.ED 19:29
DX: S72.142A Displaced intertrochanteric fracture of left femur, initial encounter for closed fracture (principal); I48.91 Unspecified atrial fibrillation; I10 Essential (primary) hypertension; J44.9 Chronic obstructive pulmonary disease, unspecified; Z88.8 Allergy status to other drugs, medicaments and biological substances; Z79.899 Other long term (current) drug therapy; Z20.822 Contact with and (suspected) exposure to COVID-19; W18.30XA Fall on same level, unspecified, initial encounter; Y92.099 Unspecified place in other non-institutional residence as the place of occurrence of the external cause
CPT/HCPCS: 36415; 51702; 73501; 80053; 85025; 85610; 96374; 96375; 96376; 99285; J2405; J3010; J7030; U0002